=== PATIENT | male | born 1980 | race Caucasian/White ===

== ENCOUNTER 2018-12-24 14:06 | Emergency (ER) | payer BC ==
[2018-12-24 14:28] VITALS: BP 167/111
[2018-12-24] MEDS ORDERED: Acetaminophen/HYDROcodone 325-5 MG Tab PO ONE (14:37)
[2018-12-24] MEDS ORDERED: Proparacaine 0.5% Ophth Soln 15 ML Bottle EYEBOTH ONE (14:37)
[2018-12-24] MEDS ORDERED: Diphtheria,Pertussis(Acell),Tetanus Vaccine 0.5 ML Syringe IM ONE (14:37)
[2018-12-24] MEDS ORDERED: Benoxinate/Fluorescein 0.4-0.25% Ophth Soln 5 ML Bottle EYEBOTH ONE (14:38)
[2018-12-24] MEDS ORDERED: Fluorescein 0.6 MG Ophth Strip ONE (14:42)
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
== END 2018-12-24 15:52 | disposition home or self-care (01) ==
LOC: JD.ED 14:06 → SUPCPDRO 14:06 → JD.ED 15:52
DX: T20.10XA Burn of first degree of head, face, and neck, unspecified site, initial encounter (principal); Z23 Encounter for immunization; Z79.899 Other long term (current) drug therapy
CPT/HCPCS: 90471; 90700; 99284; A9270